=== PATIENT | female | born 1980 | race Caucasian/White ===

== ENCOUNTER 2021-06-27 09:55 | Day surgery (SDC) | payer BC ==
[2021-06-24 15:43] VITALS: BMI 50.6
[2021-06-27] MEDS ORDERED: MIDAZOLAM HCL 2 MG/2 ML SINGLE DOSE VIAL ONE ×2 (10:42→13:38)
[2021-06-27] MEDS ORDERED: PROPOFOL 20 ML ONE ×10 (10:42→12:59)
[2021-06-27] MEDS ORDERED: KETAMINE HCL 200 MG/20 ML VIAL ONE (10:42)
[2021-06-27] MEDS ORDERED: ROCURONIUM BROMIDE 50 MG/5 ML SYRINGE ONE ×3 (10:44→15:24)
[2021-06-27] MEDS ORDERED: NEOSTIGMINE METHYLSULFATE 0.5 MG/1 ML - 10 ML MDV ONE (12:33)
[2021-06-27] MEDS ORDERED: SUCCINYLCHOLINE CHLORIDE 200 MG/10 ML SYRINGE ONE (13:11)
[2021-06-27] MEDS ORDERED: BUPIVACAINE HCL/PF 0.25% (2.5MG/ML) 10 ML VIAL ONE (13:30)
[2021-06-27] MEDS ORDERED: BUPIVACAINE LIPOSOME/PF (EXPAREL) 266 MG/20 ML VIAL ONE (13:38)
[2021-06-27] MEDS ORDERED: BUPIVACAINE HCL/PF 0.5% (5 MG/ML) 30 ML VIAL IJ ONE (13:38)
[2021-06-27] MEDS ORDERED: fentaNYL CITRATE 250 MCG/5 ML VIAL ONE (13:52)
[2021-06-27] MEDS ORDERED: ceFAZolin SODIUM 1 GM VIAL ONE (14:31)
[2021-06-27] MEDS ORDERED: DEXAMETHASONE SOD PHOSPHATE 4 MG/1 ML VIAL ONE (14:31)
[2021-06-27] MEDS ORDERED: ONDANSETRON 4 MG/2 ML VIAL ONE ×2 (14:31→17:57)
[2021-06-27] MEDS ORDERED: GLYCOPYRROLATE 0.2 MG/1 ML VIAL ONE (16:08)
[2021-06-27] MEDS ORDERED: ONDANSETRON 4 MG/2 ML VIAL IVPUSH PRN ×2 (16:20→16:36)
[2021-06-27] MEDS ORDERED: HYDROmorphone HCL CARPU-JECT 2 MG/1 ML DISP.SYRIN IVPB PRN ×2 (16:21→16:23)
[2021-06-27] MEDS ORDERED: HYDROmorphone HCl 2 MG/ML VIAL IVPB PRN (16:28)
[2021-06-27] MEDS ORDERED: SODIUM CHLORIDE 1,000 ML IV SCH (16:30)
[2021-06-27] MEDS ORDERED: FAMOTIDINE 20 MG/50 ML IVPB 20 MG/50 ML MG IVPB ONE (16:33)
[2021-06-27] MEDS ORDERED: METOCLOPRAMIDE HCL INJECTION 10 MG/2 ML VIAL ONE (16:33)
[2021-06-27] MEDS ORDERED: FAMOTIDINE 20 MG PREMIXED IVPB IVPB ONE (16:35)
[2021-06-27] MEDS ORDERED: ACETAMINOPHEN INJECTION 100 ML IVPB ONE (17:14)
[2021-06-27 17:21] LABS: ALBUMIN 3.9 g/dl (3.4-5.0); BILIRUBIN,TOTAL 0.6 mg/dl (0.2-1); CREATININE 0.8 mg/dl (0.55-1.3); TOT PROT 6.7 g/dl (6.4-8.2)
[2021-06-27] MEDS: ACETAMINOPHEN 1000 MG/100 ML BAG IVPB ONE ×2 (17:30→17:58)
[2021-06-27] MEDS: METOCLOPRAMIDE HCL INJECTION 10 MG/2 ML VIAL IVPUSH SCH ×2 (17:57→22:30)
[2021-06-27] MEDS ORDERED: ONDANSETRON *ODT* 4 MG TABLET SL PRN (18:40)
[2021-06-27 19:27] LABS: HEMATOCRIT 37.1 % (32.4-45.2); HEMOGLOBIN 11.9 GM/dL (10.7-15.3); MCH 26.7 pg (25.7-33.7); MEAN CELL VOLUME 83.5 fl (80-96); MEAN PLT VOLUME 8.4 fl (7.5-11.1); PLATELET COUNT 468 10^3/uL (134-434); RBC 4.44 M/mm3 (3.60-5.2); RDW 14.5 % (11.6-15.6)
[2021-06-27] MEDS: HYDROmorphone HCl 2 MG/ML VIAL IVPB PRN ×2 (19:45→23:26)
[2021-06-27] MEDS: FAMOTIDINE 20 MG/50 ML IVPB 20 MG/50 ML MG IVPB SCH (21:04)
[2021-06-27 22:42] LABS: ALBUMIN 3.8 g/dl (3.4-5.0); BILIRUBIN,TOTAL 0.5 mg/dl (0.2-1); CALCIUM 8.9 mg/dl (8.5-10); CREATININE 0.8 mg/dl (0.55-1.3); TOT PROT 6.5 g/dl (6.4-8.2)
[2021-06-27 23:51] LABS: HEMATOCRIT 35.8 % (32.4-45.2); HEMOGLOBIN 11.8 GM/dL (10.7-15.3); MCH 27.5 pg (25.7-33.7); MCHC 33.1 g/dl (32.0-36.0); MEAN PLT VOLUME 8.3 fl (7.5-11.1); PLATELET COUNT 396 10^3/uL (134-434); RBC 4.31 M/mm3 (3.60-5.2); RDW 14.5 % (11.6-15.6); WHITE BLOOD COUNT 13.7 K/mm3 (4.0-10.0)
[2021-06-28] MEDS: HYDROmorphone HCl 2 MG/ML VIAL IVPB PRN (03:24)
[2021-06-28] MEDS: METOCLOPRAMIDE HCL INJECTION 10 MG/2 ML VIAL IVPUSH SCH ×2 (03:58→09:37)
[2021-06-28 08:15] LABS: ALBUMIN 3.4 g/dl (3.4-5.0); BILIRUBIN,TOTAL 0.6 mg/dl (0.2-1); CALCIUM 8.6 mg/dl (8.5-10); CREATININE 0.8 mg/dl (0.55-1.3)
[2021-06-28 08:23] LABS: HEMATOCRIT 34.7 % (32.4-45.2); HEMOGLOBIN 11.2 GM/dL (10.7-15.3); MCH 27.1 pg (25.7-33.7); MCHC 32.4 g/dl (32.0-36.0); MEAN CELL VOLUME 83.6 fl (80-96); MEAN PLT VOLUME 8.2 fl (7.5-11.1); PLATELET COUNT 422 10^3/uL (134-434); RBC 4.15 M/mm3 (3.60-5.2); RDW 14.5 % (11.6-15.6); WHITE BLOOD COUNT 12.3 K/mm3 (4.0-10.0)
[2021-06-28] MEDS: FAMOTIDINE 20 MG/50 ML IVPB 20 MG/50 ML MG IVPB SCH (09:24)
[2021-06-28 14:03] VITALS: BP 112/67; PULSE 86; TEMP 98.6
[2021-06-28] MEDS ORDERED: oxyCODONE HCL 5 MG TABLET PO PRN (14:04)
[2021-06-28] MEDS ORDERED: SODIUM CHLORIDE 1,000 ML IV SCH (14:15)
== END 2021-06-28 14:59 | disposition home or self-care (01) ==
LOC: FASUSAT 09:55 → EDSTATUS 14:00 → FM/S 18:25 → FASUSAT 06-28 14:59
PROVIDERS: ATTEND Surgery
PROC: 0FB24ZX Excision of Left Lobe Liver, Percutaneous Endoscopic Approach, Diagnostic (ICD-10-PCS; 2021-06-27)
PROC: 0DV64CZ Restriction of Stomach with Extraluminal Device, Percutaneous Endoscopic Approach (ICD-10-PCS; principal; 2021-06-27 14:47)
DX: E66.01 Morbid (severe) obesity due to excess calories (principal); Z68.43 Body mass index [BMI] 50.0-59.9, adult; R16.0 Hepatomegaly, not elsewhere classified
CPT/HCPCS: 36415; 74240-TC-FY; 80053; 84703; 85027; 86850; 86900; 86901; 88305-TC; 88307-TC; 94760